=== PATIENT | female | born 1985 | race Caucasian/White ===

== ENCOUNTER 2017-04-02 00:02 | Emergency (ER) | payer BC ==
[~2017-04-02] VITALS: Ht 167.6 cm; Wt 110.7 kg
--- NOTE | 2017-04-02 01:22 | PHYS DOC ---
Past Medical History Additional Past Medical Histor: endometriosis, uterine fibroid tumor, degenerative disc disease Past Surgical History: Hysterectomy (partial) Additional Information: Nonsmoker Social History Narrative: lives in [place], here visiting, Adult General Chief Complaint Chief Complaint: ABDOMINAL PAIN HPI HPI Patient is a 31 year old female who presents with abdominal pain. She is here visiting from [place] at [facility] with her family. She states she fell asleep and at 2300 p.m. awakened with right upper and back pain. She's had a temperature as been present since Saturday. Temperature then was 102. Saturday morning she still had a fever and had some congestion. She states she was treated for urinary tract infection 2 weeks ago which is [id number] AZO. No and about extra given. She is not breast-feeding. Her last child was 2 years ago. She states she started vomiting at the same time with the pain tonight. No diarrhea. Review of Systems Review of Systems Constitutional: POS fever or chills Eyes: Denies change in visual acuity, redness, or eye pain HENT: POS nasal congestion; NO sore throat Respiratory: Denies cough or shortness of breath Cardiovascular: no chest pain. GI: POS abdominal pain, nausea, vomiting, NO bloody stools or diarrhea : Denies dysuria or hematuria Musculoskeletal: Denies back pain or joint pain Integument: Denies rash or skin lesions Neurologic: Denies headache, focal weakness or sensory changes Current Medications Current Medications Current Medications Medications (Trade) Dose Ordered Sig/Ashli Start Time Stop Time Status Last Admin Dose Admin Ceftriaxone Sodium 50 ml @ 100 mls/hr 1X ONCE 04/02/17 04:30 04/02/17 04:59 DC 04/02/17 05:26 100 MLS/HR Hydromorphone HCl (Dilaudid) 1 mg PRN Q15MIN PRN 04/02/17 01:30 04/03/17 01:29 04/02/17 05:24 1 MG Info (Do NOT chart on this entry -- for MONITORING) 1 each PRN DAILY PRN 04/02/17 04:45 04/04/17 04:44 Iohexol (Omnipaque 300 Mg/ml) 60 ml 1X ONCE 04/02/17 04:45 04/02/17 04:46 DC 04/02/17 05:00 60 ML Ondansetron HCl (Zofran) 4 mg 1X ONCE 04/02/17 02:00 04/02/17 02:03 DC 04/02/17 02:04 4 MG Sodium Chloride 1,000 ml @ 1,000 mls/hr Q1H 04/02/17 01:30 04/02/17 02:29 DC 04/02/17 02:04 1,000 MLS/HR Allergies Allergies Allergies Coded Allergies Type Severity Reaction Last Updated Verified No Known Drug Allergies 04/02/17 No Physical Exam Physical Exam Constitutional: Well developed, well nourished, no acute distress, non-toxic appearance. HENT: Normocephalic, atraumatic, bilateral external ears normal, oropharynx moist, no oral exudates, nose normal. Eyes: PERRLA, EOMI, conjunctiva normal, no discharge. Neck: Normal range of motion, no tenderness, supple, no stridor. Cardiovascular:Heart rate regular rhythm, no murmur Lungs & Thorax: Bilateral breath sounds clear to auscultation Abdomen: Bowel sounds normal, soft, POS tenderness right upper abdomen; no rebound or guarding, no masses, no pulsatile masses. Skin: Warm, dry, no erythema, no rash. Back: No tenderness, no CVA tenderness. Extremities: No tenderness, no cyanosis, no clubbing, ROM intact, no edema. Neurologic: Alert and oriented X 3, normal motor function, normal sensory function, no focal deficits noted. Current Patient Data Vital Signs Vital Signs Date Time Temp Pulse Resp B/P (MAP) Pulse Ox O2 Delivery O2 Flow Rate FiO2 04/02/17 05:24 99 04/02/17 02:02 26 Room Air 04/02/17 01:12 100.4 122 152/84 (106) 100.4 Lab Values Laboratory Tests Test 04/02/17 01:30 04/02/17 03:34 White Blood Count 9.0 x10^3/uL (4.0-11.0) Red Blood Count 3.87 x10^6/uL (3.50-5.40) Hemoglobin 10.7 g/dL (12.0-15.5) L Hematocrit 32.5 % (36.0-47.0) L Mean Corpuscular Volume 84 fL (79-100) Mean Corpuscular Hemoglobin 28 pg (25-35) Mean Corpuscular Hemoglobin Concent 33 g/dL (31-37) Red Cell Distribution Width 17.4 % (11.5-14.5) H Platelet Count 163 x10^3/uL (140-400) Neutrophils (%) (Auto) 76 % (31-73) H Lymphocytes (%) (Auto) 11 % (24-48) L Monocytes (%) (Auto) 11 % (0-9) H Eosinophils (%) (Auto) 1 % (0-3) Basophils (%) (Auto) 0 % (0-3) Neutrophils # (Auto) 6.8 x10^3uL (1.8-7.7) Lymphocytes # (Auto) 1.0 x10^3/uL (1.0-4.8) Monocytes # (Auto) 1.0 x10^3/uL (0.0-1.1) Eosinophils # (Auto) 0.0 x10^3/uL (0.0-0.7) Basophils # (Auto) 0.0 x10^3/uL (0.0-0.2) Maternal Serum HCG Beta Subunit < 1 mIU/mL (0-5) Sodium Level 143 mmol/L (136-145) Potassium Level 3.1 mmol/L (3.5-5.1) L Chloride Level 106 mmol/L (98-107) Carbon Dioxide Level 27 mmol/L (21-32) Anion Gap 10 (6-14) Blood Urea Nitrogen 11 mg/dL (7-20) Creatinine 1.1 mg/dL (0.6-1.0) H Estimated GFR (Cockcroft-Gault) 58.7 BUN/Creatinine Ratio 10 (6-20) Glucose Level 110 mg/dL (70-99) H Calcium Level 8.3 mg/dL (8.5-10.1) L Total Bilirubin 0.2 mg/dL (0.2-1.0) Aspartate Amino Transferase (AST) 14 U/L (15-37) L Alanine Aminotransferase (ALT) 29 U/L (14-59) Alkaline Phosphatase 80 U/L (46-116) Total Protein 7.4 g/dL (6.4-8.2) Albumin 3.2 g/dL (3.4-5.0) L Albumin/Globulin Ratio 0.8 (1.0-1.7) L Lipase 109 U/L (73-393) Urine Collection Type Unknown Urine Color Yellow Urine Clarity Cloudy Urine pH 6.0 Urine Specific [place] 1.010 Urine Protein Negative mg/dL (NEG-TRACE) Urine Glucose (UA) Negative mg/dL (NEG) Urine Ketones (Stick) Negative mg/dL (NEG) Urine Blood Small (NEG) Urine Nitrite Positive (NEG) Urine Bilirubin Negative (NEG) Urine Urobilinogen Dipstick 0.2 mg/dL (0.2 mg/dL) Urine Leukocyte Esterase Large (NEG) Urine RBC Occ /HPF (0-2) Urine WBC Tntc /HPF (0-4) Urine Squamous Epithelial Cells Mod /LPF Urine Bacteria Many /HPF (0-FEW) Urine Mucus Mod /LPF Laboratory Tests 04/02/17 01:30 Laboratory Tests 04/02/17 01:30 Radiology/Procedures Radiology/Procedures [facility] [address] [place] [address] IMAGING REPORT Signed PATIENT: CRUZ CHAVEZ ACCOUNT: [id number] : 1985 LOCATION: ER AGE: 31 SEX: F EXAM STATUS: REG ER ORD. PHYSICIAN: CHRISTINA BEDOLLA MD REASON: rt upper/back abd pain PROCEDURE: CT ABD PELV W/ IV CONTRST ONLY INDICATION: RIGHT UPPER BACK AND ABDOMEN PAIN COMPARISON: None. TECHNIQUE: Axial CT images were obtained through the abdomen and pelvis with intravenous contrast. One or more of the following individualized dose reduction techniques were utilized for this examination: 1. Automated exposure control; 2. Adjustment of the mA and/or kV according to patient size; 3. Use of iterative reconstruction technique. FINDINGS: Chest Base: Partially imaged without gross abnormality. Vessels: No abdominal aortic aneurysm. Liver/Biliary: No intrahepatic biliary duct dilation. Pancreas: No peripancreatic edema. Spleen: Normal. Kidneys/Adrenal: No hydronephrosis. Bladder: No definite adjacent inflammation. GI: No free air. No bowel dilation to suggest obstruction. No definite periappendiceal inflammation. Suspect a tiny fat-containing umbilical hernia. IMPRESSION: 1. No definite radiopaque obstructive ureter stone. 2. No definite periappendiceal inflammation or evidence of bowel obstruction. Electronically signed by: Leela London MD (04/02/2017 5:47 AM) [facility] DICTATED and SIGNED BY: LEELA LONDON MD DATE: 04/02/17531 CC: CHRISTINA BEDOLLA MD; NO PCP ~ Course & Med Decision Making Course & Med Decision Making Evaluated patient. IV NS placed with Dilaudid and Zofran. At 0330 am: Serum HCG negative. Still no urine. CT ordered. AT 0415 am: UA is POSITIVE. Rocephin IV dosed. Still awaiting CT to be done. At 0555 AM: CT results back: no acute findings; no stone. Reviewed findings;offered admission; she feels comfortable with discharge. Understands that if she worsens to return. Rx provided. My differential for abdominal pain includes but is not limited to appendicitis; cholelithiasis or cholecystitis; renal stones; ureterolithiasis; pancreatitis; urinary tract infection; bowel obstruction; irritable bowel. I have spoken with the patient and/or caregivers. I have explained the patient' s condition, diagnosis and treatment plan based on the information available to me at this time. I have answered the patient's and/or caregiver's questions and addressed any concerns. The patient and/or caregivers have as good an understanding of the patient's diagnosis, condition and treatment plan as can be expected at this point. The patient's condition is stable and appropriate for discharge from the emergency department. The patient will pursue further outpatient evaluation with the primary care physician or other designated or consulting physician as outlined in the discharge instructions. The patient and/or caregivers are agreeable to this plan of care and follow-up instructions have been explained in detail. The patient and/or caregivers have received these instructions in written format and have expressed an understanding of the discharge instructions. The patient and/or caregivers are aware that any significant change in condition or worsening of symptoms should prompt an immediate return to this or the closest emergency department or a call to 911. Blake Disclaimer Blake Disclaimer This electronic medical record was generated, in whole or in part, using a voice recognition dictation system. Departure Departure Impression: Primary Impression: Pyelonephritis Additional Impression: Nausea & vomiting Disposition: HOME, SELF-CARE Condition: STABLE Referrals: NO PCP (PCP) Patient Instructions: Pyelonephritis, Adult Scripts Promethazine HCl (Phenergan) 25 Mg Supp.rect 25 MG RC PRN Q6-8HRS Y for NAUSEA, #10 SUPP.RECT Prov: CHRISTINA BEDOLLA MD 04/02/17 Hydrocodone/Apap 5-325 (NORCO 5-325 TABLET) 1 Each Tablet 1-2 TAB PO Q4-6HRS, #14 TAB Prov: CHRISTINA BEDOLLA MD 04/02/17 Ondansetron (ZOFRAN ODT) 4 Mg Tab.rapdis 8 MG PO BID Y for NAUSEA/VOMITING, #14 TAB Prov: CHRISTINA BEDOLLA MD 04/02/17 Ciprofloxacin Hcl (CIPRO) 500 Mg Tablet 1 TAB PO BID, #20 TAB Prov: CHRISTINA BEDOLLA MD 04/02/17 Problem Qualifiers Additional Impression: Nausea & vomiting Vomiting type: unspecified Vomiting Intractability: non-intractable Qualified Codes: R11.2 - Nausea with vomiting, unspecified CHRISTINA BEDOLLA MD Apr 02, 2017 01:22
[2017-04-02] MEDS ORDERED: IV NORMAL SALINE 1000ML BAG 1,000 ML IV SCH (01:30)
[2017-04-02 01:36] LABS: BASO % 0 % (0-3); EOS % 1 % (0-3); HEMATOCRIT 32.5 % (36.0-47.0); HEMOGLOBIN 10.7 g/dL (12.0-15.5); LYMPH % 11 % (24-48); MEAN CORPUSCULAR HEMOGLOBIN 28 pg (25-35); MEAN CORPUSCULAR HGB CONC 33 g/dL (31-37); MEAN CORPUSCULAR VOLUME 84 fL (79-100); MONO % 11 % (0-9); NEUT % 76 % (31-73); PLATELET COUNT 163 x10^3/uL (140-400); RED BLOOD COUNT 3.87 x10^6/uL (3.50-5.40); RED CELL DISTRIBUTION WIDTH 17.4 % (11.5-14.5)
[2017-04-02 01:43] LABS: CALCIUM 8.3 mg/dL (8.5-10.1); CREATININE 1.1 mg/dL (0.6-1.0); GFR 58.7; POTASSIUM 3.1 mmol/L (3.5-5.1)
[2017-04-02 01:48] LABS: ALBUMIN 3.2 g/dL (3.4-5.0); ALBUMIN/GLOBULIN RATIO 0.8 (1.0-1.7); TOTAL BILIRUBIN 0.2 mg/dL (0.2-1.0); TOTAL PROTEIN 7.4 g/dL (6.4-8.2)
[2017-04-02] MEDS ORDERED: ONDANSETRON PF 4 MG/2 ML VIAL. IV ONE (02:00)
[2017-04-02] MEDS: HYDROmorphone 2 MG/ML VIAL IV/SQ PRN ×3 (02:02→05:24)
[2017-04-02 03:39] LABS: BILIRUBIN,URINE NEGATIVE (NEG); GLUCOSE,URINE NEGATIVE (NEG); NITRITE,URINE POSITIVE (NEG); PROTEIN,URINE NEGATIVE (NEG-TRACE); UROBILINOGEN,URINE 0.2 mg/dL (0.2 mg/dL)
[2017-04-02 03:53] LABS: BACTERIA,URINE MANY /HPF (0-FEW); RBC,URINE OCC /HPF (0-2); SQUAMOUS EPITHELIAL CELL,UR MOD /LPF; WBC,URINE TNTC /HPF (0-4)
[2017-04-02] MEDS ORDERED: IOHEXOL 300 MG/ML 75 ML VIAL IV ONE (04:45)
[2017-04-02] MEDS ORDERED: CONTRAST GIVEN MC PRN (04:45)
--- NOTE | 2017-04-02 05:50 | RAD ---
INDICATION: RIGHT UPPER BACK AND ABDOMEN PAIN COMPARISON: None. TECHNIQUE: Axial CT images were obtained through the abdomen and pelvis with intravenous contrast. One or more of the following individualized dose reduction techniques were utilized for this examination: 1. Automated exposure control; 2. Adjustment of the mA and/or kV according to patient size; 3. Use of iterative reconstruction technique. FINDINGS: Chest Base: Partially imaged without gross abnormality. Vessels: No abdominal aortic aneurysm. Liver/Biliary: No intrahepatic biliary duct dilation. Pancreas: No peripancreatic edema. Spleen: Normal. Kidneys/Adrenal: No hydronephrosis. Bladder: No definite adjacent inflammation. GI: No free air. No bowel dilation to suggest obstruction. No definite periappendiceal inflammation. Suspect a tiny fat-containing umbilical hernia. IMPRESSION: 1. No definite radiopaque obstructive ureter stone. 2. No definite periappendiceal inflammation or evidence of bowel obstruction. Electronically signed by: Judson Rosenbaum MD (04/02/2017 5:47 AM) [facility]
[2017-04-02] MEDS ORDERED: HYDR-971 PO (05:59)
[2017-04-02] MEDS ORDERED: CIPR500T94 PO (05:59)
[2017-04-02] MEDS ORDERED: ONDA4TAB10 PO (05:59)
[2017-04-02] MEDS ORDERED: PROM25SU32 RC (05:59)
[2017-04-02 06:05] VITALS: BP 138/74
== END 2017-04-02 06:05 | disposition home or self-care (01) ==
LOC: ER 00:02
DX: N12 Tubulo-interstitial nephritis, not specified as acute or chronic (principal); R11.2 Nausea with vomiting, unspecified
CPT/HCPCS: 36415; 74177; 80053; 81001; 83690; 84702; 85025; 96361; 96365; 96375; 96376; 99285; J0690; J1170; J2405; J7030; Q9967